=== PATIENT | female | born 1950 | race African-American/Black ===

== ENCOUNTER 2018-05-19 06:51 | Emergency (ER) | payer MEDICARE, OTHER ==
[~2018-05-19] VITALS: Ht 165.1 cm; Wt 63.5 kg
[~2018-05-19 06:51] MED LIST: CIPROFLOXACIN500 M2 ORAL; CRESTOR10 M1 ORAL; DIFLUCAN100 MG ORAL; IBUPROFEN600 MG ORAL; LEVAQUIN500 MG ORAL; LOSARTAN POTASS50 MG ORAL; METRONIDAZOLE500 MG ORAL; NITROFURANTOIN100 M2 ORAL; NKM
[2018-05-19] MEDS ORDERED: METFORMIN HCL1000 M1 ORAL (07:02)
--- NOTE | 2018-05-19 08:30 | Diagnostic Imaging Report ---
RIGHT ANKLE, Views INDICATION: Trauma COMPARISON: None FINDINGS: 3 views of the right ankle are obtained. Bony structures are intact. Bone mineralization is within normal limits. Joint spaces are preserved. Soft tissues are within normal limits. No radio-opaque foreign bodies. IMPRESSION: No acute fracture or subluxation identified.
--- NOTE | 2018-05-19 08:33 | Emergency Room Report ---
History of Present Illness General Chief Complaint: Lower Extremity Injury Source: Patient, EMS Present Illness HPI The patient states that a week ago she lost her balance and fell. She states she has had pain in her right ankle since that time. She denies swelling or bruising. She denies any other injury or pain. She has no other complaints. Allergies: Coded Allergies: ARIPIPRAZOLE (Verified Allergy, Unknown, 12/03/14) CODEINE (Verified Allergy, Unknown, 12/03/14) QUETIAPINE FUMARATE (Verified Allergy, Unknown, 12/03/14) RISPERIDONE (Verified Allergy, Unknown, 12/03/14) Patient History Past Medical History: see triage record, DM, HTN, other - HLP Social History: Denies: smoking, alcohol use, drug use Now: No Reviewed Nursing Documentation: PMH: Agreed; PSxH: Agreed Nursing Documentation-PMH Hx Hypertension: Yes - Hyperlipidemia Hx Diabetes: Yes Review of Systems All Other Systems: negative except mentioned in HPI Physical Exam Vital Signs Date Time Temp Pulse Resp B/P (MAP) Pulse Ox O2 Delivery O2 Flow Rate FiO2 05/19/18 06:58 98.6 77 14 168/93 99 Room Air 98.6 Sp02 EP Interpretation: reviewed, normal General Appearance: no apparent distress, alert, GCS 15, non-toxic Head: normocephalic, atraumatic Eyes: bilateral eye normal inspection, bilateral eye PERRL ENT: hearing grossly normal, normal pharynx, no angioedema, normal voice Neck: full range of motion, supple/symm/no masses Respiratory: chest non-tender, lungs clear, normal breath sounds, no respiratory distress, no retraction, no accessory muscle use, speaking full sentences Cardiovascular #1: regular rate, rhythm, no edema Rectal: deferred Musculoskeletal: back normal, normal range of motion, tender - TTP on the lateral malleolus of the R. ankle. No swelling or ecchymosis Neurologic: alert, oriented x3, responsive, motor strength/tone normal, sensory intact, speech normal Psychiatric: judgement/insight normal, memory normal, mood/affect normal, no suicidal/homicidal ideation Skin: normal color, no rash, warm/dry, well hydrated Medical Decision Making Diagnostic Impression: Primary Impression: Right ankle sprain ER Course This patient has a clinical presentation consistent with an ankle sprain. The patient did have significant tenderness and an antalgic gait, so I obtained ankle imaging which showed no acute fracture. The patient was placed in an ankle splint and given crutches for comfort. I also gave anti-inflammatories. No emergency medical condition is identified at this time. I warned the patient that plain x-rays have a significant false-negative rate. Factors, significant soft tissue injuries, and other pathology may be present even though not seen on x-ray. Injuries serious enough to ultimately require surgery may be present with normal x-rays. This can occur because some fractures or not initially visible on plain film x-rays or, rarely, the radiologist may discover a subtle fracture that I missed on my preliminary read. It was explained that close outpatient followup is required to evaluate this possibility. If all symptoms resolve or improve significantly in the coming weeks, no further testing is needed. However, if the pain/symptoms persist, additional studies such as MRI/CT or repeat x-ray would be needed to rule out the possibility of serious soft tissue injury. The patient agreed to followup as directed. Other X-Ray Diagnostic Results Other X-Ray Diagnostic Results : X-Ray ordered: R. ankle # of Views/Limited Vs Complete: Complete Indication: Pain EP Interpretation: Yes Interpretation: no dislocation, no soft tissue swelling, no fractures Impression: No acute disease Electronically Signed by: Dudley Last Vital Signs Date Time Temp Pulse Resp B/P (MAP) Pulse Ox O2 Delivery O2 Flow Rate FiO2 05/19/18 06:58 98.6 77 14 168/93 99 Room Air 98.6 Status: improved Disposition: HOME, SELF-CARE Condition: Improved Referrals: NON PHYSICIAN (PCP) Patient Instructions: Ankle Sprain Alisha Daniels DO May 19, 2018 08:33
[2018-05-19 08:50] VITALS: BP 156/90
== END 2018-05-19 08:50 | disposition home or self-care (01) ==
LOC: EMR 07:47
DX: S93.401A Sprain of unspecified ligament of right ankle, initial encounter (principal); W19.XXXA Unspecified fall, initial encounter; Y92.9 Unspecified place or not applicable; E11.9 Type 2 diabetes mellitus without complications; E78.5 Hyperlipidemia, unspecified; I10 Essential (primary) hypertension; Z88.5 Allergy status to narcotic agent
CPT/HCPCS: 99283

== ENCOUNTER 2019-01-08 05:48 | Emergency (ER) | payer MEDICARE, OTHER ==
[~2019-01-08] VITALS: Ht 165.1 cm; Wt 63.5 kg
[~2019-01-08 05:48] MED LIST changes: +METFORMIN HCL1000 M1 ORAL
[2019-01-08 05:58] VITALS: BP 192/93
--- NOTE | 2019-01-08 05:58 | NUR ---
ED Nurse Note: Pt arrived ED from home, c/o fall at home and right arm pain 04/24. Pt is A/O X 4, Bp 192/92 at this time, waitng for orders.
--- NOTE | 2019-01-08 06:06 | Emergency Room Report ---
History of Present Illness General Chief Complaint: Multiple Trauma/Fall Source: Patient Present Illness HPI Patient presents with reports of pain to the right shoulder and upper arm Reports that she had gotten up at 1:30 in the morning walking to the restroom tripped and fell Denies any head injury and eyes any lapse of consciousness denies any chest pain Denies any abdominal pain denies any focal weakness however has pain along the right side of her body mainly in the upper arm shoulder area Allergies: Coded Allergies: ARIPIPRAZOLE (Verified Allergy, Unknown, 12/03/14) CODEINE (Verified Allergy, Unknown, 12/03/14) QUETIAPINE FUMARATE (Verified Allergy, Unknown, 12/03/14) RISPERIDONE (Verified Allergy, Unknown, 12/03/14) Patient History Past Medical History: see triage record Pertinent Family History: none Last Menstrual Period: n/a Now: No : 2 Para: 2 Reviewed Nursing Documentation: PMH: Agreed; PSxH: Agreed Nursing Documentation-PMH Past Medical History: No History, Except For Hx Hypertension: Yes Hx Diabetes: Yes Review of Systems All Other Systems: negative except mentioned in HPI Physical Exam Vital Signs Date Time Temp Pulse Resp B/P (MAP) Pulse Ox O2 Delivery O2 Flow Rate FiO2 01/08/19 05:50 97.9 82 18 175/94 98 Room Air Sp02 EP Interpretation: reviewed, normal General Appearance: no apparent distress Head: normocephalic, atraumatic Eyes: bilateral eye PERRL, bilateral eye EOMI ENT: hearing grossly normal, normal pharynx Neck: full range of motion, supple Respiratory: lungs clear, no retraction, no accessory muscle use Cardiovascular #1: regular rate, rhythm Gastrointestinal: non tender, soft Musculoskeletal: other - Reproducible discomfort anterior right shoulder, no obvious bruising or hematomas supervisor facepiece line equal bilaterally Neurologic: alert, oriented x3, responsive Skin: normal color, no rash Lymphatic: no adenopathy Medical Decision Making Diagnostic Impression: Primary Impression: Contusion ER Course Patient presents with reports of fall and contusion to right side X-ray imaging is obtained Patient does have history of underlying hypertension On further discussion regarding this patient reports that she was taking losartan, however her physician took her off this medication because of possible side effects Patient however has not received another medication in place of this and she has been off blood pressure medications over the past 3 months She was encouraged to follow-up at her doctor's office today Other X-Ray Diagnostic Results Other X-Ray Diagnostic Results : X-Ray ordered: Right shoulder # of Views/Limited Vs Complete: 3 View Indication: Pain EP Interpretation: Yes Interpretation: no dislocation, no soft tissue swelling, no fractures Impression: No acute disease Electronically Signed by: Inocencio Be DO Last Vital Signs Date Time Temp Pulse Resp B/P (MAP) Pulse Ox O2 Delivery O2 Flow Rate FiO2 01/08/19 05:50 97.9 82 18 175/94 98 Room Air Status: improved Disposition: HOME, SELF-CARE Condition: Improved Scripts Amlodipine Besylate (Norvasc) 5 Mg Tablet 5 MG ORAL DAILY, #10 TAB Prov: Inocencio Be DO 01/08/19 Additional Instructions: Patient is provided with the discharge instructions notified to follow up with primary doctor in the next 2-3 days otherwise return to the er with any worsening symptoms. Please note that this report is being documented using [employer] technology. This can lead to erroneous entry secondary to incorrect interpretation by the dictating instrument. Inocencio Be DO Jan 08, 2019 06:06
--- NOTE | 2019-01-08 06:13 | NUR ---
ED Nurse Note: X-ray done at bed side.
[2019-01-08] MEDS ORDERED: Losartan 25mg tab ORAL ONE (06:15)
[2019-01-08] MEDS ORDERED: NORVASC5 MG ORAL (06:20)
[2019-01-08 06:30] VITALS: BP 183/90
--- NOTE | 2019-01-08 06:30 | NUR ---
ER DISCHARGE NOTE: Patient is cleared to be discharged per Haile. pt is A/Ox 4 on room air with stable vital signs. Pt was given dc and prescription instructions, pt was able to verbalize understanding, pt id band removed . pt is able to ambulate with steady gait and took all belongings. Accompanied by her family.
--- NOTE | 2019-01-08 19:15 | Diagnostic Imaging Report ---
Indication: Right shoulder pain. Trauma Findings: 3 views of the right shoulder were obtained. No acute fractures, malalignment, erosions or periostitis are identified. Bones are osteopenic. Soft tissues are unremarkable. Impression: Negative for acute injury
== END 2019-01-08 06:30 | disposition home or self-care (01) ==
LOC: EMR 06:21
DX: S40.011A Contusion of right shoulder, initial encounter (principal); W01.0XXA Fall on same level from slipping, tripping and stumbling without subsequent striking against object, initial encounter; Y92.002 Bathroom of unspecified non-institutional (private) residence as the place of occurrence of the external cause; I10 Essential (primary) hypertension; E11.9 Type 2 diabetes mellitus without complications; Z88.5 Allergy status to narcotic agent; Z88.8 Allergy status to other drugs, medicaments and biological substances
CPT/HCPCS: 99283